=== PATIENT | female | born 1980 | race Caucasian/White ===

== ENCOUNTER → 2016-09-07 | Outpatient (CLI) | payer OTHER ==
--- NOTE | 2016-09-07 18:28 | DX ---
Sacrum and coccyx 3 Views History: Fall on ice last week, pain. Comparison: Lumbar spine August 17, 2016. Findings: The sacroiliac joints and pubic symphysis are normal. No displaced fracture is identified. There is no significant degenerative change. Alignment of the hips is normal. Moderate stool is prese nt in the colon. Impression: No visible etiology for the patient's pain
== END ==
LOC: FLAB 09:45
PROVIDERS: ATTEND Family Medicine
DX: M53.3 Sacrococcygeal disorders, not elsewhere classified (principal)

== ENCOUNTER → 2018-02-15 | Outpatient (CLI) | payer OTHER | LOC: FLAB 10:37 | PROVIDERS: ATTEND Physician Assistant Medical | DX: K76.89 Other specified diseases of liver (principal); R10.11 Right upper quadrant pain; R10.32 Left lower quadrant pain ==